=== PATIENT | female | born 1985 | race Caucasian/White ===

== ENCOUNTER 2021-07-28 19:54 | Emergency (ER) | payer MEDICAID, MEDICARE ==
[~2021-07-28] VITALS: Ht 144.8 cm; Wt 77.8 kg
[~2021-07-28 19:54] MED LIST: NO HOME MEDS
[2021-07-28 21:01] VITALS: BP 120/76
[2021-07-28] MEDS ORDERED: acetaminophen 325mg tablet PO STA (21:11)
[2021-07-28] MEDS ORDERED: normal saline 1000ML IV soln IV ONE (21:15)
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
--- NOTE | 2021-07-28 21:38 | NUR ---
PT IS ALSO NOW REFUSING THE EKG.
[2021-07-28 21:42] LABS: BASOPHILS % (AUTO) 0.4 % (0-1); EOSINOPHILS # (AUTO) 0.1 X10'3 (0-0.9); EOSINOPHILS % (AUTO) 0.5 % (0-6); HEMATOCRIT 35.7 % (35.0-45.0); HEMOGLOBIN 11.6 g/dl (12.0-16.0); LYMPHOCYTES # (AUTO) 1.2 X10'3 (1.1-4.8); LYMPHOCYTES % (AUTO) 12.8 % (21-51); MEAN CORPUSCULAR HEMOGLOBIN 27.6 PG (27.0-31.0); MEAN CORPUSCULAR HGB CONC 32.7 g/dL (33.0-36.5); MEAN CORPUSCULAR VOLUME 84.4 FL (78-98); MEAN PLATELET VOLUME 6.8 FL (7.4-10.4); MONOCYTES # (AUTO) 0.9 X10'3 (0-0.9); MONOCYTES % (AUTO) 8.9 % (2-12); NEUTROPHILS # (AUTO) 7.5 X10'3 (1.8-7.7); NEUTROPHILS % (AUTO) 77.4 % (42-75); PLATELET COUNT 345 X10'3 (140-440); RED BLOOD COUNT 4.22 X10'6 (4.20-5.60); RED CELL DISTRIBUTION WIDTH 16.4 % (11.5-14.5); WHITE BLOOD COUNT 9.7 X10'3 (4.5-11.0)
[2021-07-28 22:07] LABS: ALANINE AMINOTRANSFERASE 27 U/L (12-78); ALBUMIN/GLOBULIN RATIO 0.7 (1.1-1.5); ALKALINE PHOSPHATASE 103 IU/L (46-116); ANION GAP 6 (8-16); ASPARTATE AMINO TRANSFERASE 23 U/L (10-37); BILIRUBIN,TOTAL 0.3 MG/DL (0.1-1.0); BLOOD UREA NITROGEN 8 MG/DL (7-18); BUN/CREATININE RATIO 8.8 (6.6-38.0); CALCIUM 8.2 MG/DL (8.5-10.1); CHLORIDE 103 MMOL/L (99-107); CREATININE 0.91 MG/DL (0.40-0.90); GLUCOSE 91 MG/DL (70-104); POTASSIUM 3.5 MMOL/L (3.5-5.1); SODIUM 137 MMOL/L (135-145); TOTAL CARBON DIOXIDE 27.6 MMOL/L (24-32); TOTAL PROTEIN 7.1 G/DL (6.4-8.2); eGFR 71 ML/MIN
[2021-07-28 22:08] LABS: D-DIMER 1.41 MG/L FEU (0-0.50)
--- NOTE | 2021-07-28 22:13 | NUR ---
CONVINCED PT TO GET THE COVID AND INFLUENZA SWAB DONE. STILL WORKING ON THE EKG.
--- NOTE | 2021-07-28 22:14 | NUR ---
TALKED TO SISTER ON THE PHONE. SHE WAS ABLE TO GIVE US A BETTER HISTORY FOR THE PATIENT BECAUSE PATIENT ISNT THE BEST HISTORIAN AT THE MOMENT. DOCTOR HAS BEEN NOTIFIED ABOUT RECENT AND LAST MONTH.
[2021-07-28] MEDS ORDERED: IODIXANOL 320 MG/ML INFUS..BTL 100ML IV ONE (22:31)
[2021-07-28] MEDS ORDERED: ipratropium/albuterol 3ml nebule NEB ONE (23:15)
[2021-07-28] MEDS ORDERED: methylPREDNISolone sod succ 125mg/2ml vial IV ONE (23:15)
[2021-07-28] MEDS ORDERED: CefTRIAXone 2gm/NS 100ml IVPB 100 ML IV ONE (23:15)
[2021-07-28] MEDS ORDERED: PRED20TA PO ×2 (23:50)
[2021-07-28] MEDS ORDERED: CEPH250T PO (23:50)
[2021-07-28] MEDS ORDERED: ALBU6.7H9 INH ×2 (23:50)
[2021-07-28] MEDS ORDERED: BENZ-38 PO ×2 (23:50)
[2021-07-30] MEDS ORDERED: OLAN15TA35 PO (21:53)
[2021-08-09] MEDS ORDERED: ALBU18HF2 PO (14:16)
[2021-08-09] MEDS ORDERED: NICO-907 BC (14:16)
[2021-08-09] MEDS ORDERED: OLAN15TA3 PO (14:16)
[2021-08-09] MEDS ORDERED: ESCI5TAB PO (14:16)
== END 2021-07-29 00:50 | disposition home or self-care (01) ==
LOC: ER 19:55
DX: J18.9 Pneumonia, unspecified organism (principal); Z20.822 Contact with and (suspected) exposure to COVID-19; R05.9 Cough, unspecified; R50.9 Fever, unspecified; R06.02 Shortness of breath; F17.200 Nicotine dependence, unspecified, uncomplicated; F12.90 Cannabis use, unspecified, uncomplicated; F15.90 Other stimulant use, unspecified, uncomplicated; Z72.89 Other problems related to lifestyle
CPT/HCPCS: 36415; 71045; 71275; 80053; 83605; 84145; 85025; 85379; 87040; 87502; 87503; 87635; 93005; 94640; 96365; 96375; 99285; C9803; J0696; J2930; J7030; Q9967; 94760

== ENCOUNTER 2021-07-30 17:01 | Emergency (ER) | payer MEDICARE ==
[~2021-07-30] VITALS: Ht 144.8 cm; Wt 80.7 kg
[~2021-07-30 17:01] MED LIST changes: +ALBU6.7H9 INH; +BENZ-38 PO; +CEPH250T PO; +PRED20TA PO
[2021-07-30 17:13] VITALS: BP 136/92
[2021-07-30 19:16] LABS: BASOPHILS % (AUTO) 0.2 % (0-1); EOSINOPHILS % (AUTO) 0.1 % (0-6); HEMATOCRIT 35.4 % (35.0-45.0); HEMOGLOBIN 11.4 g/dl (12.0-16.0); LYMPHOCYTES # (AUTO) 3.3 X10'3 (1.1-4.8); LYMPHOCYTES % (AUTO) 24.5 % (21-51); MEAN CORPUSCULAR HEMOGLOBIN 27.2 PG (27.0-31.0); MEAN CORPUSCULAR HGB CONC 32.3 g/dL (33.0-36.5); MEAN CORPUSCULAR VOLUME 84.5 FL (78-98); MEAN PLATELET VOLUME 6.9 FL (7.4-10.4); MONOCYTES # (AUTO) 1.1 X10'3 (0-0.9); MONOCYTES % (AUTO) 7.9 % (2-12); NEUTROPHILS # (AUTO) 9.1 X10'3 (1.8-7.7); NEUTROPHILS % (AUTO) 67.3 % (42-75); PLATELET COUNT 388 X10'3 (140-440); RED BLOOD COUNT 4.19 X10'6 (4.20-5.60); RED CELL DISTRIBUTION WIDTH 16.2 % (11.5-14.5); WHITE BLOOD COUNT 13.5 X10'3 (4.5-11.0)
[2021-07-30 19:32] LABS: ALANINE AMINOTRANSFERASE 34 U/L (12-78); ALBUMIN 2.7 G/DL (3.4-5.0); ALBUMIN/GLOBULIN RATIO 0.7 (1.1-1.5); ALKALINE PHOSPHATASE 95 IU/L (46-116); ANION GAP 7 (8-16); ASPARTATE AMINO TRANSFERASE 27 U/L (10-37); BILIRUBIN,TOTAL 0.1 MG/DL (0.1-1.0); BLOOD UREA NITROGEN 17 MG/DL (7-18); BUN/CREATININE RATIO 19.8 (6.6-38.0); CALCIUM 8.5 MG/DL (8.5-10.1); CHLORIDE 106 MMOL/L (99-107); CREATININE 0.86 MG/DL (0.40-0.90); GLUCOSE 106 MG/DL (70-104); SODIUM 142 MMOL/L (135-145); TOTAL CARBON DIOXIDE 29.1 MMOL/L (24-32); TOTAL PROTEIN 6.7 G/DL (6.4-8.2); eGFR 76 ML/MIN
[2021-07-30 19:38] LABS: ETHANOL < 0.010 GM/DL (0.0-0.010)
[2021-07-30] MEDS ORDERED: OLAN15TA35 PO (21:53)
[2021-07-30 22:44] LABS: URINE HCG NEGATIVE (NEG)
--- NOTE | 2021-07-30 22:46 | NUR ---
Patient asleep in room. No needs at this time. Waiting to be evaluated by [facility] no longer at the bedside.
[2021-07-30 22:52] LABS: URINE AMPHETAMINE SCREEN POSITIVE (Neg); URINE BARBITUATE SCREEN NEGATIVE (Neg); URINE BENZODIAZEPINES SCREEN NEGATIVE (Neg); URINE CANNABINOID SCREEN POSITIVE (Neg); URINE COCAINE SCREEN NEGATIVE (Neg); URINE METHADONE SCREEN NEGATIVE (Neg); URINE OPIATE SCREEN NEGATIVE (Neg); URINE PHENCYCLIDINE SCREEN NEGATIVE (Neg)
[2021-07-31] MEDS ORDERED: dexamethasone 4mg tablet PO ONE (00:20)
[2021-07-31] MEDS ORDERED: ipratropium/albuterol 3ml nebule NEB ONE (00:20)
[2021-07-31] MEDS ORDERED: OLANZapine 5mg rapidly disint. tablet PO ONE (00:25)
[2021-07-31] MEDS ORDERED: cephalexin 250mg capsule PO ONE (00:25)
[2021-07-31] MEDS ORDERED: OLAN15TA35 PO (00:50)
[2021-07-31] MEDS ORDERED: CEPH250T PO (00:50)
[2021-07-31] MEDS ORDERED: CEPH250C PO (12:27)
[2021-07-31] MEDS ORDERED: ALBU18HF2 PO (12:27)
[2021-07-31] MEDS ORDERED: OLAN15TA3 PO (12:48)
[2021-08-09] MEDS ORDERED: ALBU18HF2 PO (14:16)
[2021-08-09] MEDS ORDERED: ESCI5TAB PO (14:16)
[2021-08-09] MEDS ORDERED: NICO-907 BC (14:16)
[2021-08-09] MEDS ORDERED: OLAN15TA3 PO (14:16)
== END 2021-07-31 01:08 | disposition home or self-care (01) ==
LOC: ER 17:01
DX: F31.9 Bipolar disorder, unspecified (principal); F15.10 Other stimulant abuse, uncomplicated; R05.9 Cough, unspecified; Z20.822 Contact with and (suspected) exposure to COVID-19
CPT/HCPCS: 36415; 80053; 80305; 80320; 81025; 85025; 87635; 94640; 99284; C9803; 94760

== ENCOUNTER 2022-02-06 22:04 | Emergency (ER) | payer MEDICARE, MEDICAID ==
[~2022-02-06] VITALS: Ht 144.8 cm; Wt 60.0 kg
[~2022-02-06 22:04] MED LIST changes: -ALBU6.7H9 INH; -BENZ-38 PO; -CEPH250T PO; +ESCI5TAB17 PO; +NICO-907 BC; -NO HOME MEDS; +OLAN15TA35 PO; -PRED20TA PO
[2022-02-06 22:23] VITALS: BP 122/65
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
== END 2022-02-07 00:37 | disposition home or self-care (01) ==
LOC: EEVIPCON 22:04 → ER 22:04
DX: Z04.41 Encounter for examination and observation following alleged adult rape (principal); F31.9 Bipolar disorder, unspecified; F12.90 Cannabis use, unspecified, uncomplicated; F15.20 Other stimulant dependence, uncomplicated
CPT/HCPCS: 99281

== ENCOUNTER 2022-02-18 21:39 | Emergency (ER) | payer MEDICARE, MEDICAID ==
[~2022-02-18] VITALS: Ht 144.8 cm; Wt 64.9 kg
[2022-02-18 22:00] VITALS: BP 124/86
[2022-02-18] MEDS ORDERED: naproxen 500mg tablet PO ONE (22:50)
== END 2022-02-18 23:00 | disposition home or self-care (01) ==
LOC: ER 21:40
DX: M25.512 Pain in left shoulder (principal); F31.9 Bipolar disorder, unspecified; F12.90 Cannabis use, unspecified, uncomplicated; F15.20 Other stimulant dependence, uncomplicated; Z59.00 Homelessness unspecified
CPT/HCPCS: 99282

== ENCOUNTER 2022-02-20 22:22 | Emergency (ER) | payer MEDICARE, MEDICAID ==
[~2022-02-20] VITALS: Ht 144.8 cm; Wt 50.0 kg
[2022-02-20 22:35] VITALS: BP 121/83
== END 2022-02-21 01:33 | disposition home or self-care (01) ==
LOC: ER 22:23
DX: F31.9 Bipolar disorder, unspecified (principal); F12.10 Cannabis abuse, uncomplicated; F15.10 Other stimulant abuse, uncomplicated; Z79.899 Other long term (current) drug therapy
CPT/HCPCS: 99281

== ENCOUNTER 2022-03-02 22:44 | Emergency (ER) | payer MEDICARE, MEDICAID ==
[~2022-03-02] VITALS: Ht 144.8 cm; Wt 62.0 kg
[2022-03-02 23:33] VITALS: BP 122/87
== END 2022-03-03 19:29 | disposition left against medical advice (07) ==
LOC: ER 22:44
DX: R11.0 Nausea (principal); Z53.21 Procedure and treatment not carried out due to patient leaving prior to being seen by health care provider

== ENCOUNTER 2022-03-05 19:10 | Emergency (ER) | payer MEDICARE, MEDICAID ==
[~2022-03-05] VITALS: Ht 144.8 cm; Wt 86.4 kg
[2022-03-05 19:11] VITALS: BP 147/96
[2022-03-05] MEDS ORDERED: acetaminophen 325mg tablet PO ONE (22:20)
--- NOTE | 2022-03-05 22:29 | NUR ---
po med given
== END 2022-03-05 22:41 | disposition home or self-care (01) ==
LOC: ER 19:13
DX: R51.9 Headache, unspecified (principal); F31.9 Bipolar disorder, unspecified; F12.90 Cannabis use, unspecified, uncomplicated; F15.20 Other stimulant dependence, uncomplicated; Z59.00 Homelessness unspecified
CPT/HCPCS: 99282

== ENCOUNTER 2022-04-09 16:44 | Emergency (ER) | payer MEDICARE, MEDICAID ==
[~2022-04-09] VITALS: Ht 147.3 cm; Wt 79.5 kg
[2022-04-09 17:33] VITALS: BP 92/67
[2022-04-09 18:26] LABS: BASOPHILS % (AUTO) 0.3 % (0-1); EOSINOPHILS % (AUTO) 0 % (0-6); HEMATOCRIT 38.8 % (35.0-45.0); HEMOGLOBIN 12.7 g/dl (12.0-16.0); LYMPHOCYTES # (AUTO) 0.8 X10'3 (1.1-4.8); LYMPHOCYTES % (AUTO) 4.8 % (21-51); MEAN CORPUSCULAR HEMOGLOBIN 28.5 PG (27.0-31.0); MEAN CORPUSCULAR HGB CONC 32.7 g/dL (33.0-36.5); MEAN CORPUSCULAR VOLUME 87.2 FL (78-98); MEAN PLATELET VOLUME 7.1 FL (7.4-10.4); MONOCYTES # (AUTO) 0.7 X10'3 (0-0.9); MONOCYTES % (AUTO) 4.3 % (2-12); NEUTROPHILS % (AUTO) 90.6 % (42-75); PLATELET COUNT 364 X10'3 (140-440); RED BLOOD COUNT 4.45 X10'6 (4.20-5.60); RED CELL DISTRIBUTION WIDTH 14.6 % (11.5-14.5); WHITE BLOOD COUNT 16.6 X10'3 (4.5-11.0)
[2022-04-09 18:33] LABS: ALANINE AMINOTRANSFERASE 32 U/L (12-78); ALBUMIN 3.1 G/DL (3.4-5.0); ALBUMIN/GLOBULIN RATIO 0.7 (1.1-1.5); ALKALINE PHOSPHATASE 134 IU/L (46-116); ANION GAP 9 (8-16); ASPARTATE AMINO TRANSFERASE 46 U/L (10-37); BILIRUBIN,TOTAL 0.5 MG/DL (0.1-1.0); BLOOD UREA NITROGEN 11 MG/DL (7-18); BUN/CREATININE RATIO 10.1 (6.6-38.0); CHLORIDE 99 MMOL/L (99-107); CREATININE 1.09 MG/DL (0.40-0.90); GLUCOSE 135 MG/DL (70-104); POTASSIUM 3.2 MMOL/L (3.5-5.1); SODIUM 133 MMOL/L (135-145); TOTAL CARBON DIOXIDE 25.1 MMOL/L (24-32); TOTAL PROTEIN 7.3 G/DL (6.4-8.2); eGFR 57 ML/MIN
== END 2022-04-09 21:56 | disposition left against medical advice (07) ==
LOC: ER 16:45
DX: R50.9 Fever, unspecified (principal); Z53.21 Procedure and treatment not carried out due to patient leaving prior to being seen by health care provider
CPT/HCPCS: 36415; 71045; 80053; 83605; 84145; 85025; 87040

== ENCOUNTER 2022-04-10 07:28 | Emergency (ER) | payer MEDICARE, MEDICAID ==
[2022-04-10 07:33] VITALS: BP 110/38
== END 2022-04-10 09:50 | disposition left against medical advice (07) ==
LOC: ER 07:29
DX: R05.9 Cough, unspecified (principal); Z53.21 Procedure and treatment not carried out due to patient leaving prior to being seen by health care provider

== ENCOUNTER 2022-04-12 01:57 | Emergency (ER) | payer MEDICARE, MEDICAID ==
[~2022-04-12] VITALS: Ht 147.3 cm; Wt 62.0 kg
[2022-04-12 02:13] VITALS: BP 139/86
[2022-04-12] MEDS ORDERED: CEFD300C3 PO (23:59)
== END 2022-04-12 06:01 | disposition left against medical advice (07) ==
LOC: ER 02:05
DX: R50.9 Fever, unspecified (principal); R42 Dizziness and giddiness; R11.0 Nausea; Z53.21 Procedure and treatment not carried out due to patient leaving prior to being seen by health care provider

== ENCOUNTER 2022-04-12 21:22 | Emergency (ER) | payer MEDICARE, MEDICAID ==
[~2022-04-12] VITALS: Ht 144.8 cm; Wt 62.0 kg
[2022-04-12 21:27] VITALS: BP 132/70
[2022-04-12] MEDS ORDERED: normal saline 1000ML IV soln IV ONE (22:55)
[2022-04-12 23:26] LABS: BASOPHILS # (AUTO) 0.1 X10'3 (0-0.2); BASOPHILS % (AUTO) 0.4 % (0-1); EOSINOPHILS % (AUTO) 0 % (0-6); HEMOGLOBIN 11.1 g/dl (12.0-16.0); LYMPHOCYTES # (AUTO) 2.2 X10'3 (1.1-4.8); LYMPHOCYTES % (AUTO) 16.5 % (21-51); MEAN CORPUSCULAR HEMOGLOBIN 29.2 PG (27.0-31.0); MEAN CORPUSCULAR HGB CONC 33.5 g/dL (33.0-36.5); MEAN CORPUSCULAR VOLUME 87.2 FL (78-98); MEAN PLATELET VOLUME 6.8 FL (7.4-10.4); MONOCYTES # (AUTO) 1.6 X10'3 (0-0.9); MONOCYTES % (AUTO) 12.3 % (2-12); NEUTROPHILS # (AUTO) 9.4 X10'3 (1.8-7.7); NEUTROPHILS % (AUTO) 70.8 % (42-75); PLATELET COUNT 321 X10'3 (140-440); RED BLOOD COUNT 3.79 X10'6 (4.20-5.60); RED CELL DISTRIBUTION WIDTH 14.6 % (11.5-14.5); WHITE BLOOD COUNT 13.4 X10'3 (4.5-11.0)
--- NOTE | 2022-04-12 23:47 | NUR ---
Patient refused IV from RN.
[2022-04-12 23:48] LABS: ALANINE AMINOTRANSFERASE 34 U/L (12-78); ALBUMIN 2.4 G/DL (3.4-5.0); ALBUMIN/GLOBULIN RATIO 0.5 (1.1-1.5); ALKALINE PHOSPHATASE 137 IU/L (46-116); ANION GAP 5 (8-16); ASPARTATE AMINO TRANSFERASE 40 U/L (10-37); BILIRUBIN,TOTAL 0.5 MG/DL (0.1-1.0); BLOOD UREA NITROGEN 8 MG/DL (7-18); BUN/CREATININE RATIO 9.5 (6.6-38.0); CALCIUM 8.2 MG/DL (8.5-10.1); CHLORIDE 101 MMOL/L (99-107); CREATININE 0.84 MG/DL (0.40-0.90); GLUCOSE 106 MG/DL (70-104); MAGNESIUM 1.8 MG/DL (1.5-2.4); POTASSIUM 3.5 MMOL/L (3.5-5.1); SODIUM 133 MMOL/L (135-145); TOTAL CARBON DIOXIDE 27.1 MMOL/L (24-32); TOTAL PROTEIN 6.9 G/DL (6.4-8.2); eGFR 77 ML/MIN
--- NOTE | 2022-04-12 23:53 | NUR ---
MASTER Neil in to visit with the patient. The patient is refusing an IV. She will let us run her urine to the lab. She will take an antibiotic in pill form she says.
[2022-04-12] MEDS ORDERED: CEFD300C3 PO (23:59)
[2022-04-13] MEDS ORDERED: cephalexin 500mg capsule PO ONE
[2022-04-13 00:03] LABS: URINE HCG NEGATIVE (NEG)
[2022-04-13 00:55] LABS: CLARITY,URINE CLOUDY (Clear); COLOR,URINE Yellow (Yellow); GLUCOSE, URINE NEGATIVE (Neg); PH,URINE 6.5 (4.8-8.0); PROTEIN,URINE TRACE mg/dl (Neg); UA COLLECTION TYPE CLN CATCH MIDSTREAM
[2022-04-13 00:56] LABS: KETONES,URINE Negative (Neg); NITRITES, URINE POSITIVE (Neg); OCCULT BLOOD,URINE MODERATE (Neg)
[2022-04-13 00:57] LABS: UROBILINOGEN,URINE 0.2 E.U/dL (0.2-1.0)
[2022-04-13 00:58] LABS: LEUKOCYTE ESTERASE ,URINE LARGE (Neg)
[2022-04-13 01:00] LABS: WBC,URINE TNTC /HPF (0-4)
[2022-04-13 01:01] LABS: BACTERIA,URINE 3+ /HPF (Neg); MUCUS STRANDS FEW /LPF (Neg); SQUAMOUS EPITHELIAL CELL,UR FEW /LPF (FEW)
== END 2022-04-13 01:17 | disposition home or self-care (01) ==
LOC: ER 21:22
DX: N39.0 Urinary tract infection, site not specified (principal); R50.9 Fever, unspecified; N12 Tubulo-interstitial nephritis, not specified as acute or chronic; F31.9 Bipolar disorder, unspecified; F17.200 Nicotine dependence, unspecified, uncomplicated; F12.90 Cannabis use, unspecified, uncomplicated; F15.20 Other stimulant dependence, uncomplicated; Z56.0 Unemployment, unspecified; Z59.00 Homelessness unspecified
CPT/HCPCS: 36415; 71045; 80053; 81001; 81003; 81025; 83605; 83735; 84145; 85025; 87040; 87077; 87088; 87186; 93005; 99285

== ENCOUNTER 2022-04-13 08:42 | Emergency (ER) | payer MEDICARE, MEDICAID ==
[~2022-04-13] VITALS: Ht 170.2 cm; Wt 58.0 kg
[~2022-04-13 08:42] MED LIST changes: +CEFD300C3 PO
[2022-04-13 08:46] VITALS: BP 118/71
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
--- NOTE | 2022-04-13 10:32 | NUR ---
IN ROOM WITH PROVIDER FOR EVAL. PT IS ASKED NUMEROUS TIMES "WHAT CAN WE DO FOR YOU MEDICALLY" - PT IS STARING AT HER CELL PHONE AND HAS TO BE ASKED TO PUT IT DOWN AND SPEAK WITH PROVIDER. PT STATES HER HANDS FELT HOT AND THEN COLD. RADIAL PULSES STRONG, COLOR IS GOOD AND CAP REFILL WNL. WHEN PT TOLD THIS INFORMATION SHE THEN STATES "NOW MY FACE FEELS HOT" - PT IN NO ACUTE DISTRESS. WAS GIVEN SNACKS. HAS WEATHER APPROPRIATE CLOTHING IN POSSESSION INCLUDING SLEEPBAG AND BLANKETS.
[2022-04-13] MEDS ORDERED: acetaminophen 325mg tablet PO ONE (10:35)
== END 2022-04-13 10:46 | disposition home or self-care (01) ==
LOC: ER 08:43
DX: M79.642 Pain in left hand (principal); F31.9 Bipolar disorder, unspecified; F17.200 Nicotine dependence, unspecified, uncomplicated; F12.90 Cannabis use, unspecified, uncomplicated; F15.90 Other stimulant use, unspecified, uncomplicated; Z98.890 Other specified postprocedural states; Z72.89 Other problems related to lifestyle; Z56.0 Unemployment, unspecified; Z59.00 Homelessness unspecified; Z79.2 Long term (current) use of antibiotics; Z79.899 Other long term (current) drug therapy
CPT/HCPCS: 99281; 99282

== ENCOUNTER 2022-04-13 19:37 | Emergency (ER) | payer MEDICARE, MEDICAID ==
[~2022-04-13] VITALS: Ht 144.8 cm; Wt 81.8 kg
[2022-04-13 19:48] VITALS: BP 122/81
--- NOTE | 2022-04-13 20:04 | NUR ---
pt seen and dc'd by provider
== END 2022-04-13 20:04 | disposition home or self-care (01) ==
LOC: ER 19:38
DX: Z02.89 Encounter for other administrative examinations (principal); R50.9 Fever, unspecified; R53.81 Other malaise; F31.9 Bipolar disorder, unspecified; F12.90 Cannabis use, unspecified, uncomplicated; F15.90 Other stimulant use, unspecified, uncomplicated; Z72.89 Other problems related to lifestyle; Z98.890 Other specified postprocedural states; Z56.0 Unemployment, unspecified; Z59.00 Homelessness unspecified; Z79.2 Long term (current) use of antibiotics; Z79.899 Other long term (current) drug therapy
CPT/HCPCS: 99281

== ENCOUNTER 2022-04-16 03:13 | Emergency (ER) | payer MEDICARE, MEDICAID ==
[~2022-04-16] VITALS: Ht 144.8 cm; Wt 58.5 kg
[2022-04-16 03:57] VITALS: BP 118/79
[2022-04-16] MEDS ORDERED: ibuprofen tablet 400 MG TABLET PO ONE (04:25)
== END 2022-04-16 04:48 | disposition home or self-care (01) ==
LOC: ER 03:13
DX: M79.642 Pain in left hand (principal); M79.641 Pain in right hand; M79.672 Pain in left foot; M79.671 Pain in right foot; F31.9 Bipolar disorder, unspecified; F12.90 Cannabis use, unspecified, uncomplicated; F15.90 Other stimulant use, unspecified, uncomplicated; Z72.89 Other problems related to lifestyle; Z56.0 Unemployment, unspecified; Z59.00 Homelessness unspecified; Z79.899 Other long term (current) drug therapy; Z98.890 Other specified postprocedural states
CPT/HCPCS: 99282

== ENCOUNTER → 2022-04-17 | Emergency (ER) | payer MEDICARE, MEDICAID ==
[~2022-04-17] VITALS: Ht 144.8 cm; Wt 60.1 kg
[~2022-04-17] MED LIST changes: +PROC-8 PO
[2022-04-17 21:52] VITALS: BP 132/72
== END | disposition home or self-care (01) ==
LOC: ER 21:35
DX: R45.1 Restlessness and agitation (principal); F31.9 Bipolar disorder, unspecified; F17.200 Nicotine dependence, unspecified, uncomplicated; F12.90 Cannabis use, unspecified, uncomplicated; F15.20 Other stimulant dependence, uncomplicated; Z59.00 Homelessness unspecified; Z56.0 Unemployment, unspecified; Z98.890 Other specified postprocedural states
CPT/HCPCS: 99281

== ENCOUNTER 2022-04-18 23:28 | Emergency (ER) | payer MEDICARE, MEDICAID ==
[~2022-04-18] VITALS: Ht 152.4 cm; Wt 60.0 kg
[~2022-04-18 23:28] MED LIST changes: -PROC-8 PO
[2022-04-18 23:37] VITALS: BP 119/79
[2022-04-19] MEDS ORDERED: diphenoxylate/atropine tablet (Lomotil) PO ONE (01:00)
== END 2022-04-19 01:38 | disposition home or self-care (01) ==
LOC: ER 23:29
DX: R19.7 Diarrhea, unspecified (principal); F31.9 Bipolar disorder, unspecified; F12.90 Cannabis use, unspecified, uncomplicated; F15.90 Other stimulant use, unspecified, uncomplicated; Z59.00 Homelessness unspecified; Z56.0 Unemployment, unspecified; Z72.89 Other problems related to lifestyle; Z98.890 Other specified postprocedural states; Z79.899 Other long term (current) drug therapy
CPT/HCPCS: 99283

== ENCOUNTER 2022-04-19 21:06 | Emergency (ER) | payer MEDICARE, MEDICAID ==
[~2022-04-19] VITALS: Ht 144.8 cm; Wt 47.7 kg
[2022-04-20 05:50] VITALS: BP 126/71
[2022-04-21] MEDS ORDERED: PROC-8 PO (09:59)
== END 2022-04-20 11:18 | disposition left against medical advice (07) ==
LOC: ER 21:07
DX: M79.643 Pain in unspecified hand (principal); Z53.21 Procedure and treatment not carried out due to patient leaving prior to being seen by health care provider

== ENCOUNTER 2022-04-20 14:38 | Emergency (ER) | payer MEDICARE, MEDICAID ==
[~2022-04-20] VITALS: Ht 144.8 cm; Wt 59.1 kg
[2022-04-20 14:51] VITALS: BP 134/91
[2022-04-21] MEDS ORDERED: PROC-8 PO (09:59)
== END 2022-04-20 16:12 | disposition left against medical advice (07) ==
LOC: ER 14:39
DX: M79.643 Pain in unspecified hand (principal); M79.673 Pain in unspecified foot; R11.0 Nausea; Z53.21 Procedure and treatment not carried out due to patient leaving prior to being seen by health care provider

== ENCOUNTER 2022-04-20 19:22 | Emergency (ER) | payer MEDICARE, MEDICAID ==
[~2022-04-20] VITALS: Ht 160 cm; Wt 66.3 kg
[2022-04-20 20:03] LABS: CLARITY,URINE CLOUDY (Clear); COLOR,URINE YELLOW (Yellow); GLUCOSE, URINE NEGATIVE (Neg); KETONES,URINE NEGATIVE (Neg); LEUKOCYTE ESTERASE ,URINE MODERATE (Neg); NITRITES, URINE POSITIVE (Neg); OCCULT BLOOD,URINE SMALL (Neg); PH,URINE 6.5 (4.8-8.0); PROTEIN,URINE NEGATIVE (Neg); UROBILINOGEN,URINE 0.2 E.U/dL (0.2-1.0)
[2022-04-20 20:05] LABS: UA COLLECTION TYPE VOIDED
[2022-04-20 20:08] LABS: URINE HCG NEGATIVE (NEG); WBC CLUMPS,URINE MANY /HPF (NEGATIVE)
[2022-04-20 20:09] LABS: BACTERIA,URINE 2+ /HPF (Neg); RBC,URINE 0-2 /HPF (0-2); SQUAMOUS EPITHELIAL CELL,UR FEW /LPF (FEW); WBC,URINE 50-100 /HPF (0-4)
[2022-04-20] MEDS ORDERED: FOSFOMYCIN TROMETHAMINE 3 GM PACKET PO ONE (21:00)
[2022-04-20] MEDS ORDERED: nystatin 15 GM powder TP STA (21:03)
[2022-04-20 21:18] VITALS: BP 142/83
[2022-04-21] MEDS ORDERED: PROC-8 PO (09:59)
== END 2022-04-20 21:19 | disposition home or self-care (01) ==
LOC: ER 19:22
DX: N39.0 Urinary tract infection, site not specified (principal); B37.2 Candidiasis of skin and nail; F31.9 Bipolar disorder, unspecified; F17.200 Nicotine dependence, unspecified, uncomplicated; F12.90 Cannabis use, unspecified, uncomplicated; F15.90 Other stimulant use, unspecified, uncomplicated; Z59.00 Homelessness unspecified; Z56.0 Unemployment, unspecified; Z98.890 Other specified postprocedural states; Z79.899 Other long term (current) drug therapy
CPT/HCPCS: 81001; 81025; 87077; 87088; 87186; 99283

== ENCOUNTER 2022-04-21 07:59 | Emergency (ER) | payer MEDICARE, MEDICAID ==
[~2022-04-21] VITALS: Ht 144.8 cm; Wt 54.0 kg
[~2022-04-21 07:59] MED LIST changes: -CEFD300C3 PO
--- NOTE | 2022-04-21 09:16 | NUR ---
Checked on patient 10 minutes ago, patient states she is getting dressed. Upon checking on patient now, still getting dressed.
[2022-04-21] MEDS ORDERED: PROC-8 PO (09:59)
[2022-04-21] MEDS ORDERED: ondansetron 4mg rapidly disintigrating tab PO ONE (10:00)
[2022-04-21 10:48] VITALS: BP 109/79
--- NOTE | 2022-04-21 11:02 | NUR ---
Patient given food items.
== END 2022-04-21 11:26 | disposition home or self-care (01) ==
LOC: ER 07:59
DX: R11.0 Nausea (principal); R30.9 Painful micturition, unspecified; N39.0 Urinary tract infection, site not specified; F31.9 Bipolar disorder, unspecified; F12.90 Cannabis use, unspecified, uncomplicated; Z98.890 Other specified postprocedural states; Z59.00 Homelessness unspecified; Z56.0 Unemployment, unspecified; Z79.899 Other long term (current) drug therapy
CPT/HCPCS: 99283

== ENCOUNTER 2022-04-22 21:23 | Emergency (ER) | payer MEDICARE, MEDICAID ==
[~2022-04-22] VITALS: Ht 144.8 cm; Wt 45.5 kg
[~2022-04-22 21:23] MED LIST changes: +PROC-8 PO
[2022-04-22 22:39] VITALS: BP 124/68
== END 2022-04-22 23:05 | disposition home or self-care (01) ==
LOC: ER 21:23
DX: M79.672 Pain in left foot (principal); M79.671 Pain in right foot; R20.8 Other disturbances of skin sensation; M79.641 Pain in right hand; M79.642 Pain in left hand; F31.9 Bipolar disorder, unspecified; F12.90 Cannabis use, unspecified, uncomplicated; F15.90 Other stimulant use, unspecified, uncomplicated; Z98.890 Other specified postprocedural states; Z60.2 Problems related to living alone; Z59.00 Homelessness unspecified; Z56.0 Unemployment, unspecified; Z79.899 Other long term (current) drug therapy
CPT/HCPCS: 99281

== ENCOUNTER 2022-05-09 19:44 | Emergency (ER) | payer MEDICARE, MEDICAID ==
[~2022-05-09] VITALS: Ht 144.8 cm; Wt 100.0 kg
[2022-05-09 19:54] VITALS: BP 109/80
--- NOTE | 2022-05-09 20:00 | NUR ---
No medical needs identified.
[2022-05-09] MEDS ORDERED: acetaminophen 325mg tablet PO ONE (20:15)
== END 2022-05-09 20:23 | disposition home or self-care (01) ==
LOC: ER 19:45
DX: R50.9 Fever, unspecified (principal); F31.9 Bipolar disorder, unspecified; F12.10 Cannabis abuse, uncomplicated; F15.10 Other stimulant abuse, uncomplicated; Z59.00 Homelessness unspecified; Z56.0 Unemployment, unspecified; Z79.899 Other long term (current) drug therapy
CPT/HCPCS: 99282

== ENCOUNTER 2022-05-10 04:49 | Emergency (ER) | payer MEDICARE, MEDICAID ==
[~2022-05-10] VITALS: Ht 146.1 cm; Wt 70.0 kg
[2022-05-10 04:55] VITALS: BP 114/74
--- NOTE | 2022-05-10 06:17 | NUR ---
PT HAS BEEN SEEN DRINKING "A GALLON OF MILK AND FRITOS" IN THE ER LOBBY BY ELKE RN
== END 2022-05-10 06:20 | disposition left against medical advice (07) ==
LOC: ER 04:50
DX: R10.9 Unspecified abdominal pain (principal); R50.9 Fever, unspecified; R11.0 Nausea; Z53.21 Procedure and treatment not carried out due to patient leaving prior to being seen by health care provider

== ENCOUNTER 2022-05-10 19:53 | Emergency (ER) | payer MEDICARE, MEDICAID ==
[~2022-05-10] VITALS: Ht 144.8 cm; Wt 59.1 kg
[2022-05-10 21:07] VITALS: BP 148/79
[2022-05-11] MEDS ORDERED: acetaminophen 325mg tablet PO ONE (00:10)
[2022-06-03] MEDS ORDERED: NO HOME MEDS (17:08)
[2022-06-03] MEDS ORDERED: OLAN5TAB3 PO (17:26)
[2022-06-03] MEDS ORDERED: CEPH250T PO (17:26)
[2022-06-18] MEDS ORDERED: TRAZ-251 PO (22:28)
[2022-06-18] MEDS ORDERED: NICO-907 BC (22:28)
[2022-06-18] MEDS ORDERED: OLAN5TAB75 PO ×2 (22:29)
[2022-06-18] MEDS ORDERED: OLAN20TA19 PO (22:29)
== END 2022-05-11 00:28 | disposition home or self-care (01) ==
LOC: ER 19:54
DX: J02.9 Acute pharyngitis, unspecified (principal); F31.9 Bipolar disorder, unspecified; F12.90 Cannabis use, unspecified, uncomplicated; F15.90 Other stimulant use, unspecified, uncomplicated; Z60.2 Problems related to living alone; Z56.0 Unemployment, unspecified; Z59.00 Homelessness unspecified; Z79.899 Other long term (current) drug therapy
CPT/HCPCS: 99282

== ENCOUNTER 2022-05-11 22:14 | Emergency (ER) | payer MEDICARE, MEDICAID ==
--- NOTE | 2022-05-12 01:09 | NUR ---
When patient name was called for triage she was sleeping in a corner. Pt woke up when she heard her name, then rolled over and went back to sleep
== END 2022-05-12 02:32 | disposition left against medical advice (07) ==
LOC: ER 22:15
DX: Z00.8 Encounter for other general examination (principal); Z53.21 Procedure and treatment not carried out due to patient leaving prior to being seen by health care provider

== ENCOUNTER 2022-05-15 07:07 | Emergency (ER) | payer MEDICARE, MEDICAID ==
[~2022-05-15] VITALS: Ht 144.8 cm; Wt 56.0 kg
[2022-05-15 07:09] VITALS: BP 110/73
== END 2022-05-15 11:07 | disposition left against medical advice (07) ==
LOC: ER 07:07
DX: R50.9 Fever, unspecified (principal); Z53.21 Procedure and treatment not carried out due to patient leaving prior to being seen by health care provider

== ENCOUNTER 2022-05-19 21:00 | Emergency (ER) | payer MEDICARE, MEDICAID ==
[~2022-05-19] VITALS: Ht 147.3 cm; Wt 52.3 kg
[2022-05-19 21:25] VITALS: BP 126/93
== END 2022-05-20 06:04 | disposition left against medical advice (07) ==
LOC: ER 21:01
DX: R51.9 Headache, unspecified (principal); Z53.21 Procedure and treatment not carried out due to patient leaving prior to being seen by health care provider

== ENCOUNTER 2022-05-20 06:14 | Emergency (ER) | payer MEDICARE, MEDICAID ==
[~2022-05-20] VITALS: Ht 144.8 cm; Wt 56.8 kg
[2022-05-20 06:34] VITALS: BP 115/42
== END 2022-05-20 08:52 | disposition left against medical advice (07) ==
LOC: ER 06:15
DX: R11.0 Nausea (principal); Z53.21 Procedure and treatment not carried out due to patient leaving prior to being seen by health care provider

== ENCOUNTER 2022-05-20 15:22 | Emergency (ER) | payer MEDICARE, MEDICAID | END 2022-05-20 17:04 | disposition left against medical advice (07) | LOC: ER 15:23 | DX: R50.9 Fever, unspecified (principal); Z53.21 Procedure and treatment not carried out due to patient leaving prior to being seen by health care provider ==

== ENCOUNTER 2022-05-20 18:44 | Emergency (ER) | payer MEDICARE, MEDICAID ==
[~2022-05-20] VITALS: Ht 147.3 cm; Wt 63.6 kg
[2022-05-20 21:06] VITALS: BP 127/79
== END 2022-05-20 22:44 | disposition left against medical advice (07) ==
LOC: ER 18:45
DX: R11.0 Nausea (principal); Z53.21 Procedure and treatment not carried out due to patient leaving prior to being seen by health care provider
CPT/HCPCS: C2617

== ENCOUNTER 2022-05-21 05:49 | Emergency (ER) | payer MEDICARE, MEDICAID | END 2022-05-21 06:03 | disposition left against medical advice (07) | LOC: ER 05:50 | DX: T78.40XA Allergy, unspecified, initial encounter (principal); Z53.21 Procedure and treatment not carried out due to patient leaving prior to being seen by health care provider; T50.905A Adverse effect of unspecified drugs, medicaments and biological substances, initial encounter; Y92.89 Other specified places as the place of occurrence of the external cause; X58.XXXA Exposure to other specified factors, initial encounter ==

== ENCOUNTER 2022-05-30 21:20 | Emergency (ER) | payer MEDICARE, MEDICAID ==
[~2022-05-30] VITALS: Ht 144.8 cm; Wt 56.8 kg
[2022-05-30 21:57] VITALS: BP 123/84
[2022-05-30] MEDS ORDERED: ibuprofen 200mg tablet PO ONE (23:35)
[2022-06-03] MEDS ORDERED: NO HOME MEDS (17:08)
[2022-06-03] MEDS ORDERED: CEPH250T PO (17:26)
[2022-06-03] MEDS ORDERED: OLAN5TAB3 PO (17:26)
== END 2022-05-30 23:50 | disposition home or self-care (01) ==
LOC: ER 21:21
DX: M79.671 Pain in right foot (principal); M79.672 Pain in left foot; Z76.5 Malingerer [conscious simulation]; F31.9 Bipolar disorder, unspecified; F12.90 Cannabis use, unspecified, uncomplicated; F15.20 Other stimulant dependence, uncomplicated; Z98.890 Other specified postprocedural states; Z59.00 Homelessness unspecified; Z56.0 Unemployment, unspecified
CPT/HCPCS: 99282

== ENCOUNTER 2022-07-05 02:48 | Emergency (ER) | payer MEDICARE, MEDICAID ==
[~2022-07-05] VITALS: Ht 146.1 cm; Wt 49.1 kg
[~2022-07-05 02:48] MED LIST changes: -ESCI5TAB17 PO; -OLAN15TA35 PO; +OLAN20TA19 PO; +OLAN5TAB75 PO; -PROC-8 PO; +TRAZ-251 PO
[2022-07-05 02:50] VITALS: BP 132/74
== END 2022-07-05 03:28 | disposition left against medical advice (07) ==
LOC: ER 02:48
DX: R07.0 Pain in throat (principal); Z53.21 Procedure and treatment not carried out due to patient leaving prior to being seen by health care provider
CPT/HCPCS: 99281

== ENCOUNTER 2022-08-18 12:36 | Emergency (ER) | payer MEDICARE, MEDICAID ==
[~2022-08-18] VITALS: Ht 144.8 cm; Wt 145.0 kg
[2022-08-18] MEDS ORDERED: normal saline 1000ml 1,000 ML IV ONE (12:55)
[2022-08-18] MEDS ORDERED: normal saline 1000ML IV soln IVB ONE (13:00)
[2022-08-18] MEDS ORDERED: NALO4SPR BOTHNARES (13:00)
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
[2022-08-18 13:24] LABS: CLARITY,URINE CLOUDY (Clear); COLOR,URINE YELLOW (Yellow); GLUCOSE, URINE NEGATIVE (Neg); KETONES,URINE NEGATIVE (Neg); LEUKOCYTE ESTERASE ,URINE TRACE (Neg); NITRITES, URINE NEGATIVE (Neg); OCCULT BLOOD,URINE NEGATIVE (Neg); PROTEIN,URINE TRACE mg/dl (Neg); UROBILINOGEN,URINE 0.2 E.U/dL (0.2-1.0)
[2022-08-18 13:27] LABS: UA COLLECTION TYPE CLN CATCH MIDSTREAM; URINE HCG NEGATIVE (NEG)
[2022-08-18 13:31] LABS: BACTERIA,URINE 2+ /HPF (Neg); MUCUS STRANDS NONE SEEN /LPF (Neg); RBC,URINE 0-2 /HPF (0-2); SQUAMOUS EPITHELIAL CELL,UR FEW /LPF (FEW); WBC CLUMPS,URINE FEW /HPF (NEGATIVE); WBC,URINE 20-30 /HPF (0-4)
[2022-08-18] MEDS ORDERED: ondansetron/PF 4mg/2ml inj IV ONE (13:35)
[2022-08-18 13:39] LABS: ALANINE AMINOTRANSFERASE 26 U/L (12-78); ALBUMIN 3.2 G/DL (3.4-5.0); ALBUMIN/GLOBULIN RATIO 0.9 (1.1-1.5); ALKALINE PHOSPHATASE 103 IU/L (46-116); ANION GAP 8 (8-16); ASPARTATE AMINO TRANSFERASE 24 U/L (10-37); BASOPHILS % (AUTO) 0.5 % (0-1); BILIRUBIN,TOTAL 0.2 MG/DL (0.1-1.0); BLOOD UREA NITROGEN 12 MG/DL (7-18); CALCIUM 8.3 MG/DL (8.5-10.1); CHLORIDE 104 MMOL/L (99-107); EOSINOPHILS # (AUTO) 0.1 X10'3 (0-0.9); EOSINOPHILS % (AUTO) 0.7 % (0-6); ETHANOL < 0.010 GM/DL (0.0-0.010); GLUCOSE 128 MG/DL (70-104); HEMATOCRIT 40.7 % (35.0-45.0); HEMOGLOBIN 13.4 g/dl (12.0-16.0); LYMPHOCYTES # (AUTO) 2.9 X10'3 (1.1-4.8); LYMPHOCYTES % (AUTO) 36.2 % (21-51); MAGNESIUM 1.8 MG/DL (1.5-2.4); MEAN CORPUSCULAR HEMOGLOBIN 29.5 PG (27.0-31.0); MEAN CORPUSCULAR HGB CONC 32.9 g/dL (33.0-36.5); MEAN CORPUSCULAR VOLUME 89.6 FL (78-98); MEAN PLATELET VOLUME 7.5 FL (7.4-10.4); MONOCYTES # (AUTO) 0.6 X10'3 (0-0.9); MONOCYTES % (AUTO) 7.3 % (2-12); NEUTROPHILS # (AUTO) 4.4 X10'3 (1.8-7.7); NEUTROPHILS % (AUTO) 55.3 % (42-75); PLATELET COUNT 278 X10'3 (140-440); POTASSIUM 3.6 MMOL/L (3.5-5.1); RED BLOOD COUNT 4.54 X10'6 (4.20-5.60); SODIUM 138 MMOL/L (135-145); TOTAL PROTEIN 6.6 G/DL (6.4-8.2); WHITE BLOOD COUNT 7.9 X10'3 (4.5-11.0); eGFR 82 ML/MIN
[2022-08-18 13:40] LABS: URINE AMPHETAMINE SCREEN NEGATIVE (Neg); URINE BARBITUATE SCREEN NEGATIVE (Neg); URINE BENZODIAZEPINES SCREEN NEGATIVE (Neg); URINE CANNABINOID SCREEN POSITIVE (Neg); URINE COCAINE SCREEN NEGATIVE (Neg); URINE METHADONE SCREEN NEGATIVE (Neg); URINE OPIATE SCREEN NEGATIVE (Neg); URINE PHENCYCLIDINE SCREEN NEGATIVE (Neg)
[2022-08-18] MEDS ORDERED: NITR100C6 PO (13:46)
--- NOTE | 2022-08-18 13:46 | NUR ---
PTS BOYFRIEND AT BEDSIDE
[2022-08-18] MEDS ORDERED: nitrofuran monohydrate/nitrofuran macrocrysal 100 MG (MacroBID) capsule PO ONE (13:50)
[2022-08-18 14:02] VITALS: BP 134/111
--- NOTE | 2022-08-20 14:39 | NUR ---
Received order for consult. Patient was discharged. Tried calling number in chart and its not active. Unable to follow up with patient.
== END 2022-08-18 14:04 | disposition home or self-care (01) ==
LOC: ER 12:36
DX: T40.601A Poisoning by unspecified narcotics, accidental (unintentional), initial encounter (principal); N39.0 Urinary tract infection, site not specified; F31.9 Bipolar disorder, unspecified; F17.200 Nicotine dependence, unspecified, uncomplicated; F12.90 Cannabis use, unspecified, uncomplicated; F15.20 Other stimulant dependence, uncomplicated; Z59.00 Homelessness unspecified; Z56.0 Unemployment, unspecified; Y92.89 Other specified places as the place of occurrence of the external cause
CPT/HCPCS: 36415; 80053; 80305; 80320; 81001; 81025; 83735; 85025; 87088; 93005; 96361; 96374; 99284; J2405; J7030